=== PATIENT | female | born 1950 | race Caucasian/White ===

== ENCOUNTER → 2024-01-31 | Outpatient (CLI) | payer OTHER | END | disposition home or self-care (01) | LOC: EDUNIT# 01-30 11:00 → SHCH 12:43 | PROVIDERS: ATTEND Internal Medicine | DX: R07.9 Chest pain, unspecified (principal) | CPT/HCPCS: 93306 ==

== ENCOUNTER → 2024-02-12 | Outpatient (CLI) | payer OTHER ==
[~2024-02-12] MED LIST: IOHEXOL 350 MG/ML 100ML INFUS..BTL IV ONE; METOPROLOL TARTRATE 1 MG/ML 5ML VIAL IV ONE
== END | disposition home or self-care (01) ==
LOC: EDUNIT# 08:00 → RAH 08:24
PROVIDERS: ATTEND Internal Medicine
DX: R07.9 Chest pain, unspecified (principal)
CPT/HCPCS: 75574; J3490; Q9967

== ENCOUNTER → 2024-02-19 | Outpatient (CLI) | payer OTHER ==
[~2024-02-19] MED LIST changes: -METOPROLOL TARTRATE 1 MG/ML 5ML VIAL IV ONE
== END | disposition home or self-care (01) ==
LOC: RAH 13:46
PROVIDERS: ATTEND Physician Assistant
DX: Z78.0 Asymptomatic menopausal state (principal); R07.9 Chest pain, unspecified
CPT/HCPCS: 77080; Q9967